=== PATIENT | female | born 1985 | race Asian ===

== ENCOUNTER 2024-07-07 18:33 | Emergency (ER) | payer MEDICAID ==
[~2024-07-07] VITALS: Ht 172.7 cm; Wt 77.0 kg
[2024-07-07 19:18] VITALS: BP 152/87; PULSE 101; RESP 16; TEMP 101.1; O2SAT 98
[2024-07-07] MEDS ORDERED: ACETAMINOPHEN 325MG TABLET PO ONE (21:30)
== END 2024-07-08 00:15 | disposition left against medical advice (07) ==
LOC: ER 18:33
DX: R50.9 Fever, unspecified (principal); R51.9 Headache, unspecified; R42 Dizziness and giddiness; Z53.21 Procedure and treatment not carried out due to patient leaving prior to being seen by health care provider